=== PATIENT | female | born 1970 | race Caucasian/White ===

== ENCOUNTER → 2022-03-30 | Outpatient (CLI) | payer BC, OTHER ==
[2022-03-30 07:01] LABS: HEMOGLOBIN 12.2 gm/dl (12.3-15.3); RED BLOOD COUNT 3.93 M/UL (4.00-5.10); WHITE BLOOD COUNT 6.2 K/UL (4.5-11.0)
[2022-03-31 07:11] LABS: VITAMIN D, 25-HYDROXY 25.3 ng/mL (30.0-100.0)
[2022-03-31 08:14] LABS: ESTRADIOL 14.3 pg/mL (.); FSH 76.4 mIU/mL (.); LUTEINIZING HORMONE(LH) 51.1 mIU/mL (.)
== END ==
LOC: LAB 06:40
PROVIDERS: Physician Assistant
DX: Z13.220 Encounter for screening for lipoid disorders (principal); Z13.1 Encounter for screening for diabetes mellitus; R53.83 Other fatigue; N95.1 Menopausal and female climacteric states; E55.9 Vitamin D deficiency, unspecified
CPT/HCPCS: 36415; 80053; 80061; 82607; 82670; 83001; 83002; 84439; 84443; 85025